=== PATIENT | female | born 1975 | race Caucasian/White ===

== ENCOUNTER 2016-10-12 00:16 | Emergency (ER) | payer MEDICAID ==
[~2016-10-12] VITALS: Ht 157.5 cm; Wt 72.0 kg
[2016-10-12 03:57] LABS: CLARITY URINE CLOUDY (CLEAR); COLOR URINE YELLOW (YELLOW); GLUCOSE URINE NEGATIVE (NEGATIVE); KETONES URINE NEGATIVE (NEGATIVE); LEUKOCYTE ESTERASE URINE 3+ (NEGATIVE); NITRITE URINE NEGATIVE (NEGATIVE); OCCULT BLOOD URINE 3+ (NEGATIVE); PROTEIN URINE NEGATIVE (NEGATIVE); SPECIFIC GRAVITY URINE 1.014 (1.005-1.030); UROBILINOGEN URINE 0.2 E.U./dL (0.2-1.0)
[2016-10-12] MEDS ORDERED: KETOROLAC 30MG/ML VIAL IV ONE (06:00)
[2016-10-12] MEDS ORDERED: ONDANSETRON 4MG ODT PO ONE (06:00)
[2016-10-12] MEDS ORDERED: KETOROLAC 30MG/ML VIAL IM ONE (06:15)
[2016-10-12 06:25] VITALS: BP 122/70
[2016-10-12] MEDS ORDERED: LIDOCAINE HCL 1% 20ML VIAL (Pyxis) INJ MC ONE (06:30)
[2016-10-12] MEDS ORDERED: CEFTRIAXONE SODIUM 1 G/VIAL IM ONE (06:30)
[2016-10-12 06:37] LABS: BASOPHILS % 0.3 % (0.0-2.0); EOSINOPHILS % 1.3 % (0.0-5.0); HEMATOCRIT. 36.6 % (36.0-48.0); HEMOGLOBIN. 12.2 g/dL (12.0-16.0); LYMPHOCYTES % 34.1 % (20.0-50.0); MEAN CORPUSCULAR HEMOGLOBIN 26.8 pg (28.0-32.0); MEAN CORPUSCULAR VOLUME 80.5 fL (81.0-99.0); MEAN PLATELET VOLUME 8.8 fl (7.4-10.4); MONOCYTES % 6.6 % (2.0-8.0); NEUTROPHILS % 57.7 % (40.0-76.0); PLATELET 206 x1000/uL (130-400); RED BLOOD CELL COUNT 4.55 mill/uL (4.2-5.4)
[2016-10-12 06:40] LABS: CARBON DIOXIDE 24 mEq/L (21-32); CHLORIDE 112 mEq/L (98-107)
== END 2016-10-12 07:27 | disposition home or self-care (01) ==
LOC: ER 00:18
DX: R10.9 Unspecified abdominal pain (principal); Z98.890 Other specified postprocedural states
CPT/HCPCS: 36415; 80053; 81001; 81025; 85025; 87077; 87086; 96372; 99284; J0696; J1885; J3490; Q0162

== ENCOUNTER 2016-12-31 08:05 | Emergency (ER) | payer SELFPAY ==
[~2016-12-31] VITALS: Ht 160 cm; Wt 73.0 kg
[2016-12-31] MEDS ORDERED: KETOROLAC 60MG/2ML VIAL IM ONE (09:15)
[2016-12-31 09:55] LABS: CLARITY URINE CLOUDY (CLEAR); COLOR URINE YELLOW (YELLOW); GLUCOSE URINE NEGATIVE (NEGATIVE); KETONES URINE NEGATIVE (NEGATIVE); LEUKOCYTE ESTERASE URINE 3+ (NEGATIVE); NITRITE URINE NEGATIVE (NEGATIVE); OCCULT BLOOD URINE 2+ (NEGATIVE); PROTEIN URINE NEGATIVE (NEGATIVE); SPECIFIC GRAVITY URINE 1.025 (1.005-1.030); UROBILINOGEN URINE 0.2 E.U./dL (0.2-1.0)
[2016-12-31 11:16] VITALS: BP 110/50
== END 2016-12-31 11:23 | disposition home or self-care (01) ==
LOC: ER 08:48
DX: J06.9 Acute upper respiratory infection, unspecified (principal); N39.0 Urinary tract infection, site not specified; M41.9 Scoliosis, unspecified; Z98.890 Other specified postprocedural states
CPT/HCPCS: 71010; 81001; 81025; 96372; 99285; J1885

== ENCOUNTER 2018-11-22 04:42 | Inpatient (IN) | payer MEDICAID, OTHER ==
[~2018-11-22] VITALS: Ht 154.9 cm; Wt 66.2 kg
[2018-11-22 05:45] LABS: BASOPHILS % 0.3 % (0.0-2.0); EOSINOPHILS % 0.8 % (0.0-5.0); HEMATOCRIT. 39.2 % (36.0-48.0); HEMOGLOBIN. 13.4 g/dL (12.0-16.0); LYMPHOCYTES % 18.3 % (20.0-50.0); MEAN CORPUSCULAR VOLUME 84.9 fL (81.0-99.0); MEAN PLATELET VOLUME 9.1 fl (7.4-10.4); MONOCYTES % 6.8 % (2.0-8.0); NEUTROPHILS % 73.8 % (40.0-76.0); PLATELET 187 x1000/uL (130-400); RED BLOOD CELL COUNT 4.62 mill/uL (4.2-5.4); RED CELL DISTRIBUTION WIDTH 14.2 % (11.6-14.6)
[2018-11-22 05:49] LABS: CHLORIDE 106 mEq/L (98-107)
[2018-11-22 05:53] LABS: ETHANOL BLOOD < 10 mg/dL
[2018-11-22] MEDS ORDERED: NITROGLYCERIN OINT 1GM/INCH UDPKT TD ONE (06:45)
[2018-11-22] MEDS ORDERED: ASPIRIN 325MG EC TABLET PO ONE (06:45)
[2018-11-22] MEDS ORDERED: SODIUM CHLORIDE 0.9% 1,000 ML IV ONE (06:48)
[2018-11-22 06:52] LABS: CLARITY URINE CLEAR (CLEAR); COLOR URINE YELLOW (YELLOW); KETONES URINE NEGATIVE (NEGATIVE); LEUKOCYTE ESTERASE URINE 2+ (NEGATIVE); NITRITE URINE POSITIVE (NEGATIVE); OCCULT BLOOD URINE TRACE (NEGATIVE); PH URINE 6.5 (4.5-8.0); PROTEIN URINE NEGATIVE (NEGATIVE); SPECIFIC GRAVITY URINE 1.007 (1.005-1.030); UROBILINOGEN URINE 0.2 E.U./dL (0.2-1.0)
[2018-11-22 06:57] LABS: HCG SCREEN NEGATIVE
[2018-11-22 07:11] LABS: *BENZODIAZEPINES SCREEN URINE NEGATIVE (NEGATIVE); *COCAINE SCREEN URINE NEGATIVE (NEGATIVE); CANNABINOID URINE SCREEN NEGATIVE (NEGATIVE); METHADONE URINE SCREEN NEGATIVE (NEGATIVE); OPIATES URINE SCREEN NEGATIVE (NEGATIVE)
[2018-11-22 07:12] LABS: PHENCYCLIDINE URINE SCREEN NEGATIVE (NEGATIVE)
[2018-11-22 07:14] LABS: *AMPHETAMINES SCREEN URINE NEGATIVE (NEGATIVE); *BARBITURATES SCREEN URINE NEGATIVE (NEGATIVE)
[2018-11-22] MEDS ORDERED: CEFTRIAXONE 1 G PREMIX 50 ML IV ONE (07:30)
[2018-11-22] MEDS ORDERED: OXYCODONE HCL/ACETAMINOPHEN 5/325MG TABLET PO ONE (10:30)
[2018-11-22] MEDS ORDERED: IOHEXOL-350 100 ML BOTTLE ONE (10:58)
[2018-11-23 09:01] VITALS: BP 98/42
[2018-11-23 09:30] VITALS: BP 94/52
[2018-11-23] MEDS ORDERED: CLONIDINE 0.1MG TABLET PO PRN (10:00)
[2018-11-23] MEDS ORDERED: DOCUSATE SODIUM 100MG CAPSULE PO PRN (10:00)
[2018-11-23] MEDS ORDERED: IPRATROPIUM/ALBUTEROL 0.5-3(2.5)MG/3ML NEB HHN PRN (10:00)
[2018-11-23] MEDS ORDERED: ONDANSETRON HCL 4MG/2ML INJ IV PRN (10:00)
[2018-11-23] MEDS ORDERED: ACETAMINOPHEN 325MG TABLET PO PRN (10:00)
[2018-11-23] MEDS ORDERED: LORAZEPAM 0.5MG TABLET PO PRN (10:00)
[2018-11-23] MEDS ORDERED: HYDROCODONE/ACETAMINOPHEN 5/325MG TABLET PO PRN (10:00)
[2018-11-23 12:00] VITALS: BP 97/43
[2018-11-23 16:00] VITALS: BP 100/50
[2018-11-23 16:19] LABS: *BARBITURATES SCREEN URINE NEGATIVE (NEGATIVE); *BENZODIAZEPINES SCREEN URINE NEGATIVE (NEGATIVE); *COCAINE SCREEN URINE NEGATIVE (NEGATIVE); METHADONE URINE SCREEN NEGATIVE (NEGATIVE)
[2018-11-23 16:20] LABS: *AMPHETAMINES SCREEN URINE NEGATIVE (NEGATIVE); CANNABINOID URINE SCREEN NEGATIVE (NEGATIVE); OPIATES URINE SCREEN NEGATIVE (NEGATIVE); PHENCYCLIDINE URINE SCREEN NEGATIVE (NEGATIVE)
[2018-11-23 16:41] LABS: LDL CHOLESTEROL 124 mg/dL (5-100)
[2018-11-23 16:43] LABS: HDL CHOLESTEROL 46 mg/dL (40-59)
[2018-11-23 20:00] VITALS: BP 96/51
[2018-11-24] VITALS: BP 95/58
[2018-11-24 04:00] VITALS: BP 98/52
[2018-11-24 06:47] LABS: CHLORIDE 107 mEq/L (98-107)
[2018-11-24 08:00] VITALS: BP 91/51
[2018-11-24 12:00] VITALS: BP 105/60
[2018-11-24 16:00] VITALS: BP 114/71
[2018-11-24] MEDS ORDERED: GEMF600T MT (16:20)
[2018-11-24] MEDS ORDERED: NITR-87 MT (16:20)
[2018-11-24] MEDS ORDERED: IOHEXOL-350 100 ML BOTTLE ONE (16:33)
[2018-11-24 17:38] VITALS: BP 114/71
== END 2018-11-24 18:50 | disposition home or self-care (01) | DRG 463 ==
LOC: ER 05:05 → 5WST 08:38 → ENRESERV 11-23 07:57
PROVIDERS: ADMIT Internal Medicine; ATTEND Internal Medicine
DX: N39.0 Urinary tract infection, site not specified (principal); S09.90XA Unspecified injury of head, initial encounter; M41.9 Scoliosis, unspecified; E78.5 Hyperlipidemia, unspecified; Z98.891 History of uterine scar from previous surgery; R55 Syncope and collapse; S99.811A Other specified injuries of right ankle, initial encounter; W18.39XA Other fall on same level, initial encounter; Y93.89 Activity, other specified; Y92.89 Other specified places as the place of occurrence of the external cause; Y99.8 Other external cause status
CPT/HCPCS: 36415; 70496; 70498; 70551; 71045; 71275; 73610; 73630; 80048; 80061; 80305; 80320; 81003; 83036; 83605; 83880; 84484; 84703; 85379; 87077; 87186; 93005; 93306; 93880; 97162; 99285; J0696; Q9967; G0480

== ENCOUNTER 2021-12-11 11:49 | Emergency (ER) | payer MEDICAID, OTHER ==
[~2021-12-11] VITALS: Ht 154.9 cm; Wt 73.0 kg
[~2021-12-11 11:49] MED LIST: GEMF600T MT; NITR-87 MT
[2021-12-11] MEDS ORDERED: KETOROLAC 60MG/2ML VIAL IM STA (17:08)
[2021-12-11] MEDS ORDERED: GABA-532 PO (18:12)
[2021-12-11] MEDS ORDERED: NAPR-681 PO (18:12)
[2021-12-11 18:15] VITALS: BP 121/70
[2021-12-11 18:23] LABS: CLARITY URINE CLEAR (CLEAR); COLOR URINE YELLOW (YELLOW); KETONES URINE NEGATIVE (NEGATIVE); LEUKOCYTE ESTERASE URINE 1+ (NEGATIVE); NITRITE URINE NEGATIVE (NEGATIVE); OCCULT BLOOD URINE 3+ (NEGATIVE); PROTEIN URINE NEGATIVE (NEGATIVE); SPECIFIC GRAVITY URINE 1.018 (1.005-1.030); UROBILINOGEN URINE 0.2 E.U./dL (0.2-1.0)
== END 2021-12-11 18:38 | disposition home or self-care (01) ==
LOC: ER 11:49
DX: M54.12 Radiculopathy, cervical region (principal); M54.50 Low back pain, unspecified; Z98.890 Other specified postprocedural states
CPT/HCPCS: 72110; 81003; 81025; 96372; 99284; J1885